=== PATIENT | female | born 1990 | race Caucasian/White ===

== ENCOUNTER 2017-08-30 23:05 | Inpatient (IN) | payer OTHER ==
[~2017-08-30] VITALS: Ht 170 cm; Wt 71.7 kg
[2017-08-30] MEDS ORDERED: OXYTOCIN 30 UNITS/LACT RINGERS 500 ML IV ONE (23:35)
[2017-08-30] MEDS ORDERED: RINGERS SOLUTION,LACTATED 1,000 ML IV PRN (23:35)
[2017-08-30] MEDS ORDERED: LIDOCAINE HCL/PF 1% 30 ML VIAL INJ PRN (23:45)
[2017-08-30] MEDS ORDERED: METOCLOPRAMIDE HCL 5 MG/ML 2 ML VIAL IVP PRN (23:45)
[2017-08-30] MEDS ORDERED: CITRIC ACID/SODIUM CITRATE 30 ML SOLUTION UDCUP PO PRN (23:45)
[2017-08-30] MEDS ORDERED: FentaNYL CITRATE-PF 100 MCG/2 ML VIAL IVP PRN (23:45)
[2017-08-30] MEDS ORDERED: PREN1TAB80 PO (23:50)
[2017-08-31] MEDS: RINGERS SOLUTION,LACTATED 1,000 ML IV SCH ×3 (00:01→04:42)
[2017-08-31 00:26] VITALS: BP 111/64
[2017-08-31 00:39] LABS: BASOPHILS % (AUTO) 0.5 % (0.0-2.0); EOSINOPHILS % (AUTO) 0.4 % (1.0-6.0); HEMATOCRIT 36.3 % (36-46); HEMOGLOBIN 12.5 g/dL (12.0-16.0); LYMPHOCYTES # (AUTO) 1.5 K/uL (1.0-4.8); LYMPHOCYTES % (AUTO) 13.7 % (22.0-44.0); MEAN CORPUSCULAR HEMOGLOBIN 32.3 pg (26.0-34.0); MEAN CORPUSCULAR HGB CONC 34.3 G/dL (31.0-37.0); MEAN CORPUSCULAR VOLUME 94 fL (80-100); MONOCYTES # (AUTO) 0.7 K/uL (0.1-1.0); MONOCYTES % (AUTO) 6.5 % (2.0-9.0); NEUTROPHILS # (AUTO) 8.6 K/uL (1.8-7.7); NEUTROPHILS % (AUTO) 78.9 % (40.0-70.0); PLATELET COUNT (AUTO)-OB 182 K/uL (150-450); RED BLOOD CELL COUNT(AUTO) 3.86 MIL/uL (4.00-5.20); RED CELL DISTRIBUTION WIDTH 13.2 % (11.5-14.5)
[2017-08-31] MEDS ORDERED: BUPIVACAINE HCL/PF 0.25% 10 ML VIAL ONE (00:49)
[2017-08-31] MEDS ORDERED: LIDOCAINE HCL/PF 2% 5 ML VIAL ONE ×2 (00:49→10:00)
[2017-08-31] MEDS ORDERED: ROPIVACAINE HCL 0.2% 100 ML ED ONE ×2 (00:50→08:15)
[2017-08-31] MEDS ORDERED: ROPIVACAINE HCL 0.2% 100 ML ED PRN (01:22)
[2017-08-31] MEDS ORDERED: NALBUPHINE HCL 10 MG/ML VIAL IVP PRN ×2 (01:30)
[2017-08-31] MEDS ORDERED: PROMETHAZINE HCL 12.5 MG in SODIUM CHLORIDE 0.9% 50 ML IV PRN (01:30)
[2017-08-31] MEDS ORDERED: ONDANSETRON HCL 4 MG/2 ML VIAL IVP PRN (01:30)
[2017-08-31] MEDS ORDERED: DiphenhydrAMINE HCL 50 MG/ML VIAL IVP PRN (01:30)
[2017-08-31] MEDS ORDERED: OXYGEN THERAPY IH SCH (08:00)
[2017-08-31] MEDS ORDERED: RINGERS SOLUTION,LACTATED 1,000 ML IV ONE (12:04)
[2017-08-31] MEDS ORDERED: GLYCERIN/WITCH HAZEL LEAF 40 PADS JAR TP PRN (12:15)
[2017-08-31] MEDS ORDERED: OxyCODONE HCL/ACETAMINOPHEN 5-325 MG TABLET PO PRN (12:15)
[2017-08-31] MEDS ORDERED: BENZOCAINE 20%/MENTHOL 56 GM SPRAY CANISTER TP PRN (12:15)
[2017-08-31] MEDS ORDERED: MEASLES/MUMPS/RUBELLA VACCINE, LIVE 0.5 ML/VIAL SQ ONE (12:15)
[2017-08-31] MEDS ORDERED: LANOLIN 7 GM OINTMENT TP PRN (12:15)
[2017-08-31] MEDS: IBUPROFEN 600 MG TABLET PO PRN ×2 (13:30→20:58)
[2017-08-31] MEDS: OxyCODONE HCL/ACETAMINOPHEN 5-325 MG TABLET PO PRN (20:58)
[2017-08-31] MEDS: MAGNESIUM HYDROXIDE SUSPENSION 30 ML UDCUP PO SCH (20:58)
[2017-09-01] MEDS: OxyCODONE HCL/ACETAMINOPHEN 5-325 MG TABLET PO PRN ×3 (00:06→08:28)
[2017-09-01] MEDS: IBUPROFEN 600 MG TABLET PO PRN (04:12)
[2017-09-01] MEDS: MAGNESIUM HYDROXIDE SUSPENSION 30 ML UDCUP PO SCH (08:28)
[2017-09-01] MEDS ORDERED: IBUP-2071 PO (11:40)
[2017-09-01] MEDS ORDERED: DSS100 PO (11:41)
== END 2017-09-01 13:30 | disposition home or self-care (01) | DRG 775 ==
LOC: 4S 23:05 → OBSVTOIN 23:05 → 4S 08-31 18:50
PROVIDERS: ADMIT Obstetrics & Gynecology; ATTEND Obstetrics & Gynecology
PROC: 10D07Z6 Extraction of Products of Conception, Vacuum, Via Natural or Artificial Opening (ICD-10-PCS; principal; 2017-08-31)
PROC: 0DQR0ZZ Repair Anal Sphincter, Open Approach (ICD-10-PCS; 2017-08-31)
PROC: 3E0S3BZ Introduction of Anesthetic Agent into Epidural Space, Percutaneous Approach (ICD-10-PCS; 2017-08-31)
PROC: 00HU33Z Insertion of Infusion Device into Spinal Canal, Percutaneous Approach (ICD-10-PCS; 2017-08-31)
DX: O69.81X0 Labor and delivery complicated by cord around neck, without compression, not applicable or unspecified (principal); O70.20 Third degree perineal laceration during delivery, unspecified; O66.5 Attempted application of vacuum extractor and forceps; Z3A.37 37 weeks gestation of pregnancy; Z37.0 Single live birth
CPT/HCPCS: 86850; 86900; 86901; J2590; J2795; J3490; J7120